=== PATIENT | female | born 1995 ===

== ENCOUNTER 2021-09-03 19:20 | Inpatient (IN) | payer BC ==
[2021-09-03] MEDS ORDERED: Sodium Chloride 0.9% 2.5 ML Syringe FLUSH PRN (19:56)
[2021-09-03] MEDS ORDERED: Terbutaline 1 MG/ML SDV SUBCUT PRN (19:56)
[2021-09-03] MEDS ORDERED: Sodium Chloride 0.9% 10 ML Syringe FLUSH PRN (19:56)
[2021-09-03] MEDS ORDERED: Sodium Chloride 0.9% 10 ML SDV IV PRN (19:56)
[2021-09-03] MEDS ORDERED: Oxytocin/0.9 % Sodium Chloride 30 UNIT/500 ML BAG IV SCH (20:00)
[2021-09-03] MEDS: Sodium Chloride 0.9% 1,000 ML IV SCH (21:00)
[2021-09-03] MEDS: Misoprostol 25 MCG (1/4 of 100 MCG) Tab VAG PRN (21:04)
[2021-09-04 00:27] LABS: BLOOD UREA NITROGEN,BUN 14 mg/dL (7.0-18.0); CARBON DIOXIDE,CO2 22.8 mmol/L (21.0-32.0); CHLORIDE,CL 103 mmol/L (98-107); GLUCOSE RANDOM 89 mg/dL (74-106); POTASSIUM,K 4.1 mmol/L (3.5-5.1); SODIUM,NA 138 mmol/L (136-145)
[2021-09-04] MEDS: Misoprostol 25 MCG (1/4 of 100 MCG) Tab VAG PRN ×2 (01:01→05:02)
[2021-09-04] MEDS: Sodium Chloride 0.9% 1,000 ML IV SCH ×3 (05:00→13:17)
[2021-09-04] MEDS ORDERED: Water For Irrigation,Sterile 1,000 ML Container IRR PRN (09:39)
[2021-09-04] MEDS ORDERED: Methylergonovine 0.2 MG/1 ML Amp IM PRN (09:39)
[2021-09-04] MEDS ORDERED: Lidocaine 1% 50 ML MDV INJECT PRN (09:39)
[2021-09-04] MEDS ORDERED: Tranexamic Acid 1,000 MG in Sodium Chloride 0.9% 100 ML IV PRN (09:39)
[2021-09-04] MEDS ORDERED: Misoprostol 200 MCG Tab PO PRN (09:39)
[2021-09-04] MEDS ORDERED: Ondansetron 4 MG/2 ML SDV IVPUSH PRN (09:39)
[2021-09-04] MEDS ORDERED: Butorphanol 1 MG/ML SDV IVPUSH PRN (09:39)
[2021-09-04] MEDS ORDERED: Carboprost Tromethamine 250 MCG/1 ML Amp IM PRN (09:39)
[2021-09-04] MEDS ORDERED: Oxytocin/0.9 % Sodium Chloride 30 UNIT/500 ML BAG IV SCH (09:45)
[2021-09-04] MEDS ORDERED: Lactated Ringers 1,000 ML IV SCH (09:45)
[2021-09-04] MEDS ORDERED: Ropivacaine HCl/PF 200 ML ONE (11:34)
--- NOTE | 2021-09-04 11:48 | PCM.PREANE ---
Preanesthetic Assessment - Procedure Proposed Procedure: Labor Epidural - Anesthesia/Transfusion/Family Hx Anesthesia History: No Prior Anesthesia Family History of Anesthesia Reaction: No Transfusion History: No Prior Transfusion(s) - Review of Systems General: No Symptoms Pulmonary: No Symptoms Cardiovascular: No Symptoms Gastrointestinal: No Symptoms Neurological: No Symptoms Other: Reports: None - Physical Assessment NPO Status Date: 09/04/21 NPO Status Time: 00:00 Height: 1.52 m Weight: 78.018 kg ASA Class: 2 Mental Status: Alert & Oriented x3 Airway Class: Mallampati = 2 Dentition: Reports: Normal Dentition Thyro-Mental Finger Breadths: 3 Mouth Opening Finger Breadths: 2 ROM/Head Extension: Full Lungs: Clear to Auscultation, Normal Respiratory Effort Cardiovascular: Regular Rate, Regular Rhythm - Lab Values: Laboratory Last Values WBC 7.07 K/uL (4.0-11.0) 09/03/21 20:30 RBC 4.69 M/uL (4.30-5.90) 09/03/21 20:30 Hgb 13.4 g/dL (12.0-16.0) 09/03/21 20:30 Hct 38.8 % (36.0-46.0) 09/03/21 20:30 MCV 82.7 fL (80.0-98.0) 09/03/21 20:30 MCH 28.6 pg (27.0-32.0) 09/03/21 20:30 MCHC 34.5 g/dL (31.0-37.0) 09/03/21 20:30 RDW Std Deviation 50.6 fl (28.0-62.0) 09/03/21 20:30 RDW Coeff of Sulema 17 % (11.0-15.0) H 09/03/21 20:30 Plt Count 213 K/uL (150-400) 09/03/21 20:30 MPV 10.30 fL (7.40-12.00) 09/03/21 20:30 Nucleated RBC % 0.0 /100WBC 09/03/21 20:30 Nucleated RBCs # 0 K/uL 09/03/21 20:30 Sodium 138 mmol/L (136-145) 09/03/21 20:30 Potassium 4.1 mmol/L (3.5-5.1) 09/03/21 20:30 Chloride 103 mmol/L (98-107) 09/03/21 20:30 Carbon Dioxide 22.8 mmol/L (21.0-32.0) 09/03/21 20:30 BUN 14 mg/dL (7.0-18.0) 09/03/21 20:30 Creatinine 0.7 mg/dL (0.6-1.0) 09/03/21 20:30 Est Cr Clr Drug Dosing TNP 09/03/21 20:30 Estimated GFR (MDRD) > 60.0 ml/min 09/03/21 20:30 Glucose 89 mg/dL (74-106) 09/03/21 20:30 POC Glucose 74 mg/dL (70-99) 09/04/21 10:58 Uric Acid 5.5 mg/dL (2.6-7.2) 09/03/21 20:30 Calcium 9.6 mg/dL (8.5-10.1) 09/03/21 20:30 Total Bilirubin 0.1 mg/dL (0.2-1.0) L 09/03/21 20:30 AST 14 IU/L (15-37) L 09/03/21 20:30 ALT 12 IU/L (14-63) L 09/03/21 20:30 Alkaline Phosphatase 120 U/L (46-116) H 09/03/21 20:30 Total Protein 6.1 g/dL (6.4-8.2) L 09/03/21 20:30 Albumin 2.4 g/dL (3.4-5.0) L 09/03/21 20:30 Globulin 3.7 g/dL (2.6-4.0) 09/03/21 20:30 Albumin/Globulin Ratio 0.7 (0.9-1.6) L 09/03/21 20:30 Urine Color YELLOW 09/03/21 19:15 Urine Appearance SLT CLOUDY 09/03/21 19:15 Urine pH 6.5 (5.0-8.0) 09/03/21 19:15 Ur Specific Inez 1.020 (1.001-1.035) 09/03/21 19:15 Urine Protein TRACE mg/dL (NEGATIVE) H 09/03/21 19:15 Urine Glucose (UA) NEGATIVE mg/dL (NEGATIVE) 10/12/21 19:15 Urine Ketones NEGATIVE mg/dL (NEGATIVE) 09/03/21 19:15 Urine Occult Blood SMALL (NEGATIVE) H 09/03/21 19:15 Urine Nitrite NEGATIVE (NEGATIVE) 09/03/21 19:15 Urine Bilirubin NEGATIVE (NEGATIVE) 09/03/21 19:15 Urine Urobilinogen 0.2 EU/dL (<2.0) 09/03/21 19:15 Ur Leukocyte Esterase NEGATIVE (NEGATIVE) 09/03/21 19:15 Urine RBC 1-3 (0-2/HPF) 09/03/21 19:15 Urine WBC 0-1 (0-5/HPF) 09/03/21 19:15 Ur Epithelial Cells RARE (NONE-FEW) 09/03/21 19:15 Amorphous Sediment FEW (NEGATIVE) 09/03/21 19:15 Urine Bacteria FEW (NEGATIVE) 09/03/21 19:15 Ur Random Creatinine 57.5 mg/dL 09/03/21 19:10 U Random Total Protein 50.4 mg/dL (<11.9) H 09/03/21 19:10 Protein/Creatinin Ratio 0.9 09/03/21 19:10 SARS-CoV-2 RNA (CELESTE) NEGATIVE (NEGATIVE) 09/03/21 20:40 Blood Type B POSITIVE 09/03/21 20:30 Antibody Screen NEGATIVE 09/03/21 20:30 - Allergies Allergies/Adverse Reactions: Allergies Allergy/AdvReac Type Severity Reaction Status Date / Time No Known Allergies Allergy Verified 09/03/21 20:48 - Blood Blood Available: Yes Product(s) Available: PRBC (Type and screen) - Anesthesia Plan Pre-Op Medication Ordered: None - Acknowledgements Anesthesia Type Planned: Epidural Pt an Appropriate Candidate for the Planned Anesthesia: Yes Alternatives and Risks of Anesthesia Discussed w Pt/Guardian: Yes Pt/Guardian Understands and Agrees with Anesthesia Plan: Yes Additional Comments: pt denies neurologic or hematology pathology and denies anticoagulant use. 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: Musculoskeletal History: Reports: None Neurological History: Reports: None Psychiatric History: Reports: None Endocrine/Metabolic History: Reports: None Hematologic History: Reports: None Immunologic History: Reports: None Oncologic (Cancer) History: Reports: None Dermatologic History: Reports: None - Infectious Disease History Infectious Disease History: Reports: None - Past Surgical History Head Surgeries/Procedures: Reports: None HEENT Surgical History: Reports: Visual Other HEENT Surgeries/Procedures: 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 GI Surgical History: Reports: None Female Surgical History: Reports: Other (See Below) Other Female Surgeries/Procedures: SEPTATE UTERUS Endocrine Surgical History: Reports: None Oncologic Surgical History: Reports: None - CURRENT (IN HOUSE) MEDS Current Meds: Current Medications Butorphanol Tartrate (Butorphanol 1 Mg/Ml Sdv) 1 mg IVPUSH Q1H PRN PRN Reason: Pain (severe 7-10) Last Admin: 09/04/21 09:55 Dose: 1 mg Documented by: Carboprost Tromethamine (Carboprost Tromethamine 250 Mcg/1 Ml Amp) 250 mcg IM ASDIRECTED PRN PRN Reason: Post Hemorrhage Oxytocin/Sodium Chloride (Oxytocin 30 Unit In Ns 0.9% 500 Ml Premix) 30 unit in 500 mls @ 2 mls/hr IV TITRATE VIELKA; Protocol Last Titration: 09/04/21 10:44 Dose: 4 munits/min, 4 mls/hr Documented by: Sodium Chloride (Normal Saline) 1,000 mls @ 125 mls/hr IV ASDIRECTED VIELKA Last Admin: 09/04/21 11:30 Dose: 125 mls/hr Documented by: Lactated Ringer's (Ringers, Lactated) 1,000 mls @ 150 mls/hr IV ASDIRECTED VIELKA Oxytocin/Sodium Chloride (Oxytocin 30 Unit In Ns 0.9% 500 Ml Premix) 30 unit in 500 mls @ 999 mls/hr IV TITRATE VIELKA Tranexamic Acid 1,000 mg/ (Sodium Chloride) 110 mls @ 660 mls/hr IV ONETIME PRN PRN Reason: Bleeding Lidocaine HCl (Lidocaine 1% 50 Ml Mdv) 50 ml INJECT ONETIME PRN PRN Reason: Laceration repair Methylergonovine Maleate (Methylergonovine 0.2 Mg/1 Ml Amp) 0.2 mg IM ASDIRECTED PRN PRN Reason: Post Hemorrhage Misoprostol (Misoprostol 25 Mcg (1/4 Of 100 Mcg) Tab) 25 mcg VAG Q4H PRN PRN Reason: Cervical Ripening Last Admin: 09/04/21 05:02 Dose: 25 mcg Documented by: Misoprostol (Misoprostol 200 Mcg Tab) 200 mcg PO ONETIME PRN PRN Reason: Post Hemorrhage Ondansetron HCl (Ondansetron 4 Mg/2 Ml Sdv) 4 mg IVPUSH Q4H PRN PRN Reason: Nausea/Vomiting Sodium Chloride (Sodium Chloride 0.9% 10 Ml Syringe) 10 ml FLUSH ASDIRECTED PRN PRN Reason: Keep Vein Open Sodium Chloride (Sodium Chloride 0.9% 2.5 Ml Syringe) 2.5 ml FLUSH ASDIRECTED PRN PRN Reason: Keep Vein Open Sodium Chloride (Sodium Chloride 0.9% 10 Ml Sdv) 10 ml IV ASDIRECTED PRN PRN Reason: IV Use Sterile Water (Water For Irrigation,Sterile 1,000 Ml Container) 1,000 ml IRR ASDIRECTED PRN PRN Reason: delivery Terbutaline Sulfate (Terbutaline 1 Mg/Ml Sdv) 0.25 mg SUBCUT ASDIRECTED PRN PRN Reason: Tacysystole Discontinued Medications Ropivacaine (Naropin 0.2%) Confirm Administered Dose 200 mls @ as directed .ROUTE .[facility] ONE Stop: 09/04/21 11:35
[2021-09-04] MEDS ORDERED: ePHEDrine 50 MG/ML SDV IVPUSH PRN (11:51)
--- NOTE | 2021-09-04 11:51 | PCM.SN.2 ---
Time Documentation - Pre-Procedure Checklist Attending Provider Aware: Yes Chart Reviewed: Yes Consent Signed: Yes Labs Reviewed: Yes VS/FHR Reviewed: Yes Patient Identification Confirmation Method: Reports: Chart Visual, Verbal Patient Pt an Appropriate Candidate for the Planned Anesthesia: Yes Alternatives and Risks of Anesthesia Discussed w Pt/Guardian: Yes - Procedure Procedure Start Date: 09/04/21 Procedure Start Time: 11:[address]: Reports: Blood Pressure, Heart Rate, SPO2 Functional IV: Yes Safety Measures: Reports: Patient Identified, Procedure Verified, Site Verified, Procedure Time Out Patient Position: Reports: Sitting Prep: Reports: Betadine x3 Local Anesthetic: Reports: Intradermal Wheal w Lidocaine 1% (3 ML) Regional Placement Level: Reports: L3-4 Needle: Reports: 17 g Touhy Approach: Reports: Midline Technique: Reports: THALIA Glass Syringe THALIA Needle Depth (cm): 6 cm Parasthesia: Reports: None Fluid Obtained: Reports: None Catheter Depth at Skin (cm): 15 cm Test Dose Time: 11:29 Test Dose Medication: Reports: Lidocaine 1.5% w Epinephrine 1:200,000 (5ml) Test Dose Response: Reports: Negative Loading Dose Time: 11:39 Loading Dose Medication: Ropivicaine 0.2% Loading Dose Patient Position: Supine with LUT Continuous Infusion Start Time: 11:40 Continuous Infusion Medication: Ropivicaine 0.2% Continuous Infusion Rate: 8 Continuous Infusion PCS Bolus Option: 6 Continuous Infusion Lockout Dose (cc/hr): 20 Patient Position Post Placement: Reports: Supline/GOPI Post-procedure Pain Level: 2 Level Achieved: t4 VS and FHR Monitored in Unit Post Placement: Yes Procedure End Date: 09/04/21 Procedure End Time: 11:40 Procedure Comment: Sterile technique used throughout
--- NOTE | 2021-09-04 11:51 | PCM.POSTAN ---
POST ANESTHESIA ASSESSMENT - MENTAL STATUS Mental Status: Alert, Oriented - RESPIRATORY Respiratory Status: Respiratory Rate WNL, Airway Patent, O2 Saturation Stable - CARDIOVASCULAR CV Status: Pulse Rate WNL, Blood Pressure Stable - GASTROINTESTINAL GI Status: No Symptoms - POST OP HYDRATION Hydration Status: Adequate & Stable
[2021-09-04] MEDS ORDERED: Ropivacaine 0.2% 2MG/ML 200 ML Bag EPIDUR SCH (12:30)
[2021-09-04] MEDS ORDERED: Witch Hazel Medicated Pads 40/Jar TOP PRN (15:47)
[2021-09-04] MEDS ORDERED: Lanolin 100% Cream 7 GM Tube TOP PRN (15:47)
[2021-09-04] MEDS ORDERED: Bisacodyl 10 MG Supp RECTAL PRN (15:47)
[2021-09-04] MEDS ORDERED: Benzocaine/Menthol 20%-0.5% Spray 78 GM Cannister TOP PRN (15:47)
[2021-09-04] MEDS ORDERED: Docusate Sodium 100 MG Cap PO PRN (15:47)
[2021-09-04] MEDS ORDERED: Acetaminophen 500 MG Tab PO PRN ×2 (15:47)
[2021-09-04] MEDS ORDERED: Ibuprofen 800 MG Tab PO PRN (15:47)
[2021-09-04] MEDS ORDERED: Ibuprofen 400 MG Tab PO PRN (15:47)
--- NOTE | 2021-09-04 23:33 | OR ---
SURGEON: Angel Irby MD DATE OF PROCEDURE: 09/04/2021 INDICATION FOR PROCEDURE: A 26-year-old G1, P0, at 38 weeks and 0 days, presenting for induction of labor due to preeclampsia without severe features. The patient presented to clinic yesterday reporting increased lower extremity swelling and occipital headache. She had new onset elevated blood pressure of 130s over 90 to 100. Preeclampsia labs were normal except for an elevated protein-creatinine ratio of 0.6. Discussed with the patient she has a diagnosis of preeclampsia without severe features, which increases the risk of complications to her and the baby, would recommend proceeding with induction of labor. The patient was agreeable. also complicated by GDM A1 that was well controlled with diet. The patient also has a history of uterine septum and anovulation due to PCOS. She had growth ultrasounds with estimated weight of 51st percentile. She is GBS-negative. She was initially not dilated. She received 3 doses of Cytotec and became 1 cm dilated. She ruptured spontaneously with clear fluid. Pitocin was then started, and she started having stronger and regular contractions. She received an epidural with good pain control. She progressed to 3 to 4 cm dilated. She then started to have some early and variable decelerations. Resuscitative measures were performed, but she continued to have variable decelerations down to the 80s. Therefore, Pitocin was turned off. She continued to progress on her own and became fully dilated after 1 hour with urge to push. heart rate also improved. She began pushing with contractions. PREOPERATIVE DIAGNOSES: 1. Etienne intrauterine at 38 weeks and 0 days. 2. Preeclampsia without severe features. 3. Gestational diabetes mellitus A1. 4. Active labor. POSTOPERATIVE DIAGNOSES: 1. Etienne intrauterine at 38 weeks and 0 days. 2. Preeclampsia without severe features. 3. Gestational diabetes mellitus A1. 4. Active labor. PROCEDURE PERFORMED: Normal spontaneous vaginal delivery and repair of periurethral laceration. PRIMARY SURGEON: Angel Irby MD. ANESTHESIA: Epidural. FINDINGS: Viable male , score of 8 and 9. weight of 2600g. Nuchal cord x1. ESTIMATED BLOOD LOSS: 200 mL. DESCRIPTION OF PROCEDURE: The patient pushed well with contractions for 1 hour. The head delivered in occiput anterior position over intact perineum, restituted ROT. Nuchal cord x1 was noted and was tight. Anterior shoulder delivered easily followed by posterior shoulder and remaining body. Nuchal cord was reduced after delivery. The baby was placed on maternal chest and evaluated by awaiting nursery staff. Baby was pink, crying, and moving all extremities immediately after delivery. The umbilical cord was clamped and cut after about 2 minutes and no longer pulsating. The umbilical cord gases were obtained. The placenta was removed with gentle traction on the umbilical cord. It was examined and noted to be intact with 3-vessel cord. The vagina and perineum were examined and she had a right periurethral laceration that was bleeding. A [id number] was placed with 3-0 Vicryl and hemostasis was achieved. Fundal massage was performed and the fundus was firm and at the umbilicus. The bleeding was light. The patient tolerated the procedure well, was given care instructions. REGINO BROTHERS /[id number] MTDD
[2021-09-05 06:44] LABS: BLOOD UREA NITROGEN,BUN 9 mg/dL (7.0-18.0); CARBON DIOXIDE,CO2 21.6 mmol/L (21.0-32.0); CHLORIDE,CL 108 mmol/L (98-107); GLUCOSE RANDOM 84 mg/dL (74-106); POTASSIUM,K 3.6 mmol/L (3.5-5.1); SODIUM,NA 141 mmol/L (136-145)
--- NOTE | 2021-09-05 07:03 | PCM48HPAN ---
Post Anesthesia Note - EVALUATION WITHIN 48HRS OF ANESTHETIC Vital Signs in Normal Range: Yes Patient Participated in Evaluation: Yes Respiratory Function Stable: Yes Airway Patent: Yes Cardiovascular Function Stable: Yes Hydration Status Stable: Yes Pain Control Satisfactory: Yes Nausea and Vomiting Control Satisfactory: Yes Mental Status Recovered: Yes Vital Signs: Last Vital Signs Temp 97.5 F 09/05/21 03:41 Pulse 73 09/05/21 03:41 Resp 18 09/05/21 03:41 BP 135/68 09/05/21 03:41 Pulse Ox 97 09/05/21 03:41
--- NOTE | 2021-09-05 09:05 | PCM.PNPP ---
- General Info Date of Service: 09/05/21 Functional Status: Reports: Pain Controlled, Tolerating Diet, Ambulating, Urinating, Other (Bleeding light) - Review of Systems General: Reports: No Symptoms HEENT: Reports: No Symptoms Pulmonary: Reports: No Symptoms Cardiovascular: Reports: No Symptoms Gastrointestinal: Reports: No Symptoms Genitourinary: Reports: No Symptoms Musculoskeletal: Reports: No Symptoms Skin: Reports: No Symptoms Neurological: Reports: No Symptoms Psychiatric: Reports: No Symptoms - Patient Data Vital Signs - Most Recent: Last Vital Signs Temp 36.4 C 09/05/21 03:41 Pulse 73 09/05/21 03:41 Resp 18 09/05/21 03:41 BP 135/68 09/05/21 03:41 Pulse Ox 97 09/05/21 03:41 Weight - Most Recent: 172 lb Lab Results - Last 24 Hours: Laboratory Results - last 24 hr 09/04/21 09/04/21 09/05/21 Range/Units 10:58 14:42 04:40 WBC 11.91 H (4.0-11.0) K/uL RBC 4.40 (4.30-5.90) M/uL Hgb 12.4 (12.0-16.0) g/dL Hct 36.7 (36.0-46.0) % MCV 83.4 (80.0-98.0) fL MCH 28.2 (27.0-32.0) pg MCHC 33.8 (31.0-37.0) g/dL RDW Std Deviation 50.8 (28.0-62.0) fl RDW Coeff of Sulema 17 H (11.0-15.0) % Plt Count 179 (150-400) K/uL MPV 10.20 (7.40-12.00) fL Neut % (Auto) 73.5 (48.0-80.0) % Lymph % (Auto) 19.4 (16.0-40.0) % [place] % (Auto) 6.6 (0.0-15.0) % Eos % (Auto) 0.3 (0.0-7.0) % Baso % (Auto) 0.2 (0.0-1.5) % Neut # (Auto) 8.8 H (1.4-5.7) K/uL Lymph # (Auto) 2.3 (0.6-2.4) K/uL [place] # (Auto) 0.8 (0.0-0.8) K/uL Eos # (Auto) 0.0 (0.0-0.7) K/uL Baso # (Auto) 0.0 (0.0-0.1) K/uL Nucleated RBC % 0.0 /100WBC Nucleated RBCs # 0 K/uL Sodium (136-145) mmol/L Potassium (3.5-5.1) mmol/L Chloride (98-107) mmol/L Carbon Dioxide (21.0-32.0) mmol/L BUN (7.0-18.0) mg/dL Creatinine (0.6-1.0) mg/dL Est Cr Clr Drug Dosing mL/min Estimated GFR (MDRD) ml/min Glucose (74-106) mg/dL POC Glucose 74 125 H (70-99) mg/dL Calcium (8.5-10.1) mg/dL Total Bilirubin (0.2-1.0) mg/dL AST (15-37) IU/L ALT (14-63) IU/L Alkaline Phosphatase (46-116) U/L Total Protein (6.4-8.2) g/dL Albumin (3.4-5.0) g/dL Globulin (2.6-4.0) g/dL Albumin/Globulin Ratio (0.9-1.6) 09/05/21 Range/Units 04:40 WBC (4.0-11.0) K/uL RBC (4.30-5.90) M/uL Hgb (12.0-16.0) g/dL Hct (36.0-46.0) % MCV (80.0-98.0) fL MCH (27.0-32.0) pg MCHC (31.0-37.0) g/dL RDW Std Deviation (28.0-62.0) fl RDW Coeff of Sulema (11.0-15.0) % Plt Count (150-400) K/uL MPV (7.40-12.00) fL Neut % (Auto) (48.0-80.0) % Lymph % (Auto) (16.0-40.0) % [place] % (Auto) (0.0-15.0) % Eos % (Auto) (0.0-7.0) % Baso % (Auto) (0.0-1.5) % Neut # (Auto) (1.4-5.7) K/uL Lymph # (Auto) (0.6-2.4) K/uL [place] # (Auto) (0.0-0.8) K/uL Eos # (Auto) (0.0-0.7) K/uL Baso # (Auto) (0.0-0.1) K/uL Nucleated RBC % /100WBC Nucleated RBCs # K/uL Sodium 141 (136-145) mmol/L Potassium 3.6 (3.5-5.1) mmol/L Chloride 108 H (98-107) mmol/L Carbon Dioxide 21.6 (21.0-32.0) mmol/L BUN 9 (7.0-18.0) mg/dL Creatinine 0.5 L (0.6-1.0) mg/dL Est Cr Clr Drug Dosing 123.54 mL/min Estimated GFR (MDRD) > 60.0 ml/min Glucose 84 (74-106) mg/dL POC Glucose (70-99) mg/dL Calcium 7.9 L (8.5-10.1) mg/dL Total Bilirubin 0.3 (0.2-1.0) mg/dL AST 21 (15-37) IU/L ALT 14 (14-63) IU/L Alkaline Phosphatase 94 (46-116) U/L Total Protein 5.1 L (6.4-8.2) g/dL Albumin 1.9 L (3.4-5.0) g/dL Globulin 3.2 (2.6-4.0) g/dL Albumin/Globulin Ratio 0.6 L (0.9-1.6) Med Orders - Current: Current Medications Acetaminophen (Acetaminophen 500 Mg Tab) 500 mg PO Q4H PRN PRN Reason: Pain (mild 1-3) Acetaminophen (Acetaminophen 500 Mg Tab) 1,000 mg PO Q4H PRN PRN Reason: Pain (mild 1-3) Last Admin: 09/05/21 07:51 Dose: 1,000 mg Documented by: Benzocaine/Menthol (Benzocaine/Menthol 20%-0.5% Philipp 78 Gm Cannister) 78 gm TOP ASDIRECTED PRN PRN Reason: Perineal Comfort Measure Last Admin: 09/04/21 17:36 Dose: 1 container Documented by: Bisacodyl (Bisacodyl 10 Mg Supp) 10 mg RECTAL ONETIME PRN PRN Reason: Constipation Docusate Sodium (Docusate Sodium 100 Mg Cap) 100 mg PO Q12H PRN PRN Reason: Constipation Emollient Ointment (Lanolin 100% Cream 7 Gm Tube) 0 gm TOP ASDIRECTED PRN PRN Reason: Sore Nipples Sodium Chloride (Normal Saline) 1,000 mls @ 125 mls/hr IV ASDIRECTED VIELKA Last Admin: 09/04/21 13:17 Dose: 125 mls/hr Documented by: Ibuprofen (Ibuprofen 400 Mg Tab) 400 mg PO Q4H PRN PRN Reason: Pain (mild 1-3) Ibuprofen (Ibuprofen 800 Mg Tab) 800 mg PO Q6H PRN PRN Reason: Cramping Miscellaneous Medication (Phenylephrine Hcl In 0.9% Nacl 1 Mg/10 Ml Syringe) 0.1 mg IVPUSH Q1M PRN PRN Reason: Hypotension Ropivacaine (Ropivacaine 0.2% 2mg/Ml 200 Ml Bag) 400 mg EPIDUR ASDIRECTED VIELKA Sodium Chloride (Sodium Chloride 0.9% 10 Ml Syringe) 10 ml FLUSH ASDIRECTED PRN PRN Reason: Keep Vein Open Sodium Chloride (Sodium Chloride 0.9% 2.5 Ml Syringe) 2.5 ml FLUSH ASDIRECTED PRN PRN Reason: Keep Vein Open Sodium Chloride (Sodium Chloride 0.9% 10 Ml Sdv) 10 ml IV ASDIRECTED PRN PRN Reason: IV Use Witch Brynn (Witch Brynn Medicated Pads 40/Jar) 1 pad TOP ASDIRECTED PRN PRN Reason: comfort care Last Admin: 09/04/21 17:36 Dose: 1 container Documented by: Discontinued Medications Butorphanol Tartrate (Butorphanol 1 Mg/Ml Sdv) 1 mg IVPUSH Q1H PRN PRN Reason: Pain (severe 7-10) Last Admin: 09/04/21 09:55 Dose: 1 mg Documented by: Carboprost Tromethamine (Carboprost Tromethamine 250 Mcg/1 Ml Amp) 250 mcg IM ASDIRECTED PRN PRN Reason: Post Hemorrhage Ephedrine Sulfate (Ephedrine 50 Mg/Ml Sdv) 10 mg IVPUSH Q1M PRN PRN Reason: Hypotension Oxytocin/Sodium Chloride (Oxytocin 30 Unit In Ns 0.9% 500 Ml Premix) 30 unit in 500 mls @ 2 mls/hr IV TITRATE VIELKA; Protocol Last Titration: 09/04/21 15:02 Dose: 2 munits/min, 2 mls/hr Documented by: Lactated Ringer's (Ringers, Lactated) 1,000 mls @ 150 mls/hr IV ASDIRECTED VIELKA Oxytocin/Sodium Chloride (Oxytocin 30 Unit In Ns 0.9% 500 Ml Premix) 30 unit in 500 mls @ 999 mls/hr IV TITRATE VIELKA Last Admin: 09/04/21 15:30 Dose: 999 mls/hr Documented by: Tranexamic Acid 1,000 mg/ (Sodium Chloride) 110 mls @ 660 mls/hr IV ONETIME PRN PRN Reason: Bleeding Ropivacaine (Naropin 0.2%) Confirm Administered Dose 200 mls @ as directed .ROUTE .[facility] ONE Stop: 09/04/21 11:35 Lidocaine HCl (Lidocaine 1% 50 Ml Mdv) 50 ml INJECT ONETIME PRN PRN Reason: Laceration repair Methylergonovine Maleate (Methylergonovine 0.2 Mg/1 Ml Amp) 0.2 mg IM ASDIRECTED PRN PRN Reason: Post Hemorrhage Misoprostol (Misoprostol 25 Mcg (1/4 Of 100 Mcg) Tab) 25 mcg VAG Q4H PRN PRN Reason: Cervical Ripening Last Admin: 09/04/21 05:02 Dose: 25 mcg Documented by: Misoprostol (Misoprostol 200 Mcg Tab) 200 mcg PO ONETIME PRN PRN Reason: Post Hemorrhage Ondansetron HCl (Ondansetron 4 Mg/2 Ml Sdv) 4 mg IVPUSH Q4H PRN PRN Reason: Nausea/Vomiting Sterile Water (Water For Irrigation,Sterile 1,000 Ml Container) 1,000 ml IRR ASDIRECTED PRN PRN Reason: delivery Terbutaline Sulfate (Terbutaline 1 Mg/Ml Sdv) 0.25 mg SUBCUT ASDIRECTED PRN PRN Reason: Tacysystole - Infant Interaction Infant Disposition, : [place] at Bedside Infant Feeding: Breastfed Infant; Nursed Well Support Person: - Recovery Exam Fundal Tone: Firm Fundal Level: At Umbilicus Fundal Placement: Midline Lochia Amount: Scant Lochia Color: Rubra/Red Episiotomy/Laceration: None Bladder Status: Voiding - Exam General: Alert, Oriented, Cooperative, No Acute Distress HEENT: Pupils Equal, Pupils Reactive, EOMI Neck: Supple, Trachea Midline, No JVD Lungs: Normal Respiratory Effort GI/Abdominal Exam: Soft, Non-Tender, No Distention Extremities: Normal Inspection, Normal Range of Motion, Non-Tender, No Pedal Edema Skin: Warm, Dry, Intact Neurological: No New Focal Deficit Psy/Mental Status: Alert, Normal Affect, Normal Mood - Problem List Review Problem List Initiated/Reviewed/Updated: Yes - My Orders Last 24 Hours: My Active Orders 09/04/21 09:00 Deep Tendon Reflexes [WOMSER] Q1H 09/04/21 09:39 Resuscitation Status Routine 09/04/21 10:00 Deep Tendon Reflexes [WOMSER] Q1H 09/04/21 11:00 Deep Tendon Reflexes [WOMSER] Q1H 09/04/21 12:00 Deep Tendon Reflexes [WOMSER] Q1H 09/04/21 13:00 Deep Tendon Reflexes [WOMSER] Q1H 09/04/21 14:00 Deep Tendon Reflexes [WOMSER] Q1H 09/04/21 15:00 Deep Tendon Reflexes [WOMSER] Q1H 09/04/21 15:47 Patient Status [ADT] Routine May Shower [RC] ASDIRECTED Up ad Naomi [RC] ASDIRECTED Vital Signs [RC] PER UNIT ROUTINE Acetaminophen [Tylenol Extra Strength] 1,000 mg PO Q4H PRN Acetaminophen [Tylenol Extra Strength] 500 mg PO Q4H PRN Benzocaine/Menthol [Dermoplast Pain Relief 20%-0.5% Philipp] 78 gm TOP ASDIRECTED PRN Docusate Sodium [Colace] 100 mg PO Q12H PRN Ibuprofen [Motrin] 400 mg PO Q4H PRN Ibuprofen [Motrin] 800 mg PO Q6H PRN Lanolin [Lansinoh HPA] See Dose Instructions TOP ASDIRECTED PRN bisacodyL [Dulcolax] 10 mg RECTAL ONETIME PRN witch Brynn [Tucks] 1 pad TOP ASDIRECTED PRN Assess Lochia [WOMSER] Per Unit Routine Assess Uterine Involution [WOMSER] Per Unit Routine Peripheral IV Discontinue [OM.PC] Routine 09/04/21 Dinner Regular Diet [DIET] Deep Tendon Reflexes [WOMSER] Q1H 09/04/21 17:00 Deep Tendon Reflexes [WOMSER] Q1H 09/04/21 18:00 Deep Tendon Reflexes [WOMSER] Q1H 09/04/21 19:00 Deep Tendon Reflexes [WOMSER] Q1H - Assessment Assessment:: 26yo PPD1 s/p , complicated by preeclampsia without severe features and GDMA1. - Plan Plan:: - intermittent mild range BPs, normal this AM. Denies any symptoms, will c ontinue to monitor closely - Hgb stable, bleeding light - tolerating PO, encourage ambulation - well Possible discharge home later today. Reviewed care instructions.
--- NOTE | 2021-09-05 09:59 | PCM48HPAN ---
Post Anesthesia Note - EVALUATION WITHIN 48HRS OF ANESTHETIC Vital Signs in Normal Range: Yes Patient Participated in Evaluation: Yes Respiratory Function Stable: Yes Airway Patent: Yes Cardiovascular Function Stable: Yes Hydration Status Stable: Yes Pain Control Satisfactory: Yes Nausea and Vomiting Control Satisfactory: Yes Mental Status Recovered: Yes Vital Signs: Last Vital Signs Temp 35.8 C L 09/05/21 08:00 Pulse 69 09/05/21 08:00 Resp 18 09/05/21 08:00 BP 134/76 09/05/21 08:00 Pulse Ox 97 09/05/21 08:00 - COMMENTS/OBSERVATIONS Free Text/Narrative:: Pt states be ambulating in room with no weakness or paresthesias. Pt states only minimal discomfort at epidural site.
[2021-09-05] MEDS ORDERED: NIFEdipine 30 MG Tab.ER PO SCH (19:00)
[2021-09-06] MEDS ORDERED: Labetalol 100 MG Tab PO ONE (02:12)
--- NOTE | 2021-09-06 08:51 | PCM.PNPP ---
- General Info Date of Service: 09/06/21 Functional Status: Reports: Pain Controlled, Tolerating Diet, Ambulating, Urinating, Other (BP elevated last night, given procardia which did not improve her BP. Started on labetalol and is normtensive this morning.) - Review of Systems General: Reports: No Symptoms HEENT: Reports: No Symptoms Pulmonary: Reports: No Symptoms Cardiovascular: Reports: No Symptoms Gastrointestinal: Reports: No Symptoms Genitourinary: Reports: No Symptoms Musculoskeletal: Reports: No Symptoms Skin: Reports: No Symptoms Neurological: Reports: No Symptoms Psychiatric: Reports: No Symptoms - Patient Data Vital Signs - Most Recent: Last Vital Signs Temp 36.2 C 09/06/21 06:30 Pulse 63 09/06/21 06:30 Resp 17 09/06/21 06:30 BP 123/77 09/06/21 06:30 Pulse Ox 96 09/06/21 06:30 Weight - Most Recent: 172 lb Med Orders - Current: Current Medications Acetaminophen (Acetaminophen 500 Mg Tab) 500 mg PO Q4H PRN PRN Reason: Pain (mild 1-3) Acetaminophen (Acetaminophen 500 Mg Tab) 1,000 mg PO Q4H PRN PRN Reason: Pain (mild 1-3) Last Admin: 09/05/21 07:51 Dose: 1,000 mg Documented by: Benzocaine/Menthol (Benzocaine/Menthol 20%-0.5% [place] 78 Gm Cannister) 78 gm TOP ASDIRECTED PRN PRN Reason: Perineal Comfort Measure Last Admin: 09/04/21 17:36 Dose: 1 container Documented by: Bisacodyl (Bisacodyl 10 Mg Supp) 10 mg RECTAL ONETIME PRN PRN Reason: Constipation Docusate Sodium (Docusate Sodium 100 Mg Cap) 100 mg PO Q12H PRN PRN Reason: Constipation Emollient Ointment (Lanolin 100% Cream 7 Gm Tube) 0 gm TOP ASDIRECTED PRN PRN Reason: Sore Nipples Sodium Chloride (Normal Saline) 1,000 mls @ 125 mls/hr IV ASDIRECTED VIELKA Last Admin: 09/04/21 13:17 Dose: 125 mls/hr Documented by: Ibuprofen (Ibuprofen 400 Mg Tab) 400 mg PO Q4H PRN PRN Reason: Pain (mild 1-3) Ibuprofen (Ibuprofen 800 Mg Tab) 800 mg PO Q6H PRN PRN Reason: Cramping Miscellaneous Medication (Phenylephrine Hcl In 0.9% Nacl 1 Mg/10 Ml Syringe) 0.1 mg IVPUSH Q1M PRN PRN Reason: Hypotension Ropivacaine (Ropivacaine 0.2% 2mg/Ml 200 Ml Bag) 400 mg EPIDUR ASDIRECTED VIELKA Sodium Chloride (Sodium Chloride 0.9% 10 Ml Syringe) 10 ml FLUSH ASDIRECTED PRN PRN Reason: Keep Vein Open Sodium Chloride (Sodium Chloride 0.9% 2.5 Ml Syringe) 2.5 ml FLUSH ASDIRECTED PRN PRN Reason: Keep Vein Open Sodium Chloride (Sodium Chloride 0.9% 10 Ml Sdv) 10 ml IV ASDIRECTED PRN PRN Reason: IV Use Witch Brynn (Witch Brynn Medicated Pads 40/Jar) 1 pad TOP ASDIRECTED PRN PRN Reason: comfort care Last Admin: 09/04/21 17:36 Dose: 1 container Documented by: Discontinued Medications Butorphanol Tartrate (Butorphanol 1 Mg/Ml Sdv) 1 mg IVPUSH Q1H PRN PRN Reason: Pain (severe 7-10) Last Admin: 09/04/21 09:55 Dose: 1 mg Documented by: Carboprost Tromethamine (Carboprost Tromethamine 250 Mcg/1 Ml Amp) 250 mcg IM ASDIRECTED PRN PRN Reason: Post Hemorrhage Ephedrine Sulfate (Ephedrine 50 Mg/Ml Sdv) 10 mg IVPUSH Q1M PRN PRN Reason: Hypotension Oxytocin/Sodium Chloride (Oxytocin 30 Unit In Ns 0.9% 500 Ml Premix) 30 unit in 500 mls @ 2 mls/hr IV TITRATE VIELKA; Protocol Last Titration: 09/04/21 15:02 Dose: 2 munits/min, 2 mls/hr Documented by: Lactated Ringer's (Ringers, Lactated) 1,000 mls @ 150 mls/hr IV ASDIRECTED VIELKA Oxytocin/Sodium Chloride (Oxytocin 30 Unit In Ns 0.9% 500 Ml Premix) 30 unit in 500 mls @ 999 mls/hr IV TITRATE VIELKA Last Admin: 09/04/21 15:30 Dose: 999 mls/hr Documented by: Tranexamic Acid 1,000 mg/ (Sodium Chloride) 110 mls @ 660 mls/hr IV ONETIME PRN PRN Reason: Bleeding Ropivacaine (Naropin 0.2%) Confirm Administered Dose 200 mls @ as directed .ROUTE .STK-MED ONE Stop: 09/04/21 11:35 Labetalol HCl (Labetalol 100 Mg Tab) 200 mg PO ONETIME ONE Stop: 09/06/21 02:13 Last Admin: 09/06/21 01:45 Dose: 200 mg Documented by: Lidocaine HCl (Lidocaine 1% 50 Ml Mdv) 50 ml INJECT ONETIME PRN PRN Reason: Laceration repair Methylergonovine Maleate (Methylergonovine 0.2 Mg/1 Ml Amp) 0.2 mg IM ASDIRECTED PRN PRN Reason: Post Hemorrhage Misoprostol (Misoprostol 25 Mcg (1/4 Of 100 Mcg) Tab) 25 mcg VAG Q4H PRN PRN Reason: Cervical Ripening Last Admin: 09/04/21 05:02 Dose: 25 mcg Documented by: Misoprostol (Misoprostol 200 Mcg Tab) 200 mcg PO ONETIME PRN PRN Reason: Post Hemorrhage Nifedipine (Nifedipine 30 Mg Tab.Er) 30 mg PO DAILY VIELKA Last Admin: 09/05/21 19:52 Dose: 30 mg Documented by: Ondansetron HCl (Ondansetron 4 Mg/2 Ml Sdv) 4 mg IVPUSH Q4H PRN PRN Reason: Nausea/Vomiting Sterile Water (Water For Irrigation,Sterile 1,000 Ml Container) 1,000 ml IRR ASDIRECTED PRN PRN Reason: delivery Terbutaline Sulfate (Terbutaline 1 Mg/Ml Sdv) 0.25 mg SUBCUT ASDIRECTED PRN PRN Reason: Tacysystole - Infant Interaction Infant Disposition, : at Bedside Infant Feeding: Breastfed Infant; Nursed Well Support Person: - Recovery Exam Fundal Tone: Firm Fundal Level: 1 Fingerbreadths Below Umbilicus Fundal Placement: Midline Lochia Amount: Scant Lochia Color: Rubra/Red Perineum Description: Other (see below) Other Perinuem Description: right periurtheral tear repaired Episiotomy/Laceration: Approximated Bladder Status: Voiding Urinary Elimination: Voided - Exam General: Alert, Oriented, Cooperative, No Acute Distress HEENT: Pupils Equal, Pupils Reactive, EOMI Neck: Supple, Trachea Midline, No JVD Lungs: Clear to Auscultation, Normal Respiratory Effort Cardiovascular: Regular Rate, Regular Rhythm, No Murmurs GI/Abdominal Exam: Normal Bowel Sounds, Soft, Non-Tender, No Distention Extremities: Normal Inspection, Normal Range of Motion, Non-Tender, No Pedal Edema Skin: Warm, Dry, Intact Neurological: No New Focal Deficit Psy/Mental Status: Alert, Normal Affect, Normal Mood - Problem List Review Problem List Initiated/Reviewed/Updated: Yes - Assessment Assessment:: 26yo PPD2 s/p , complicated by preeclampsia without severe features and GDMA1. - Plan Plan:: - elevated BP yesterday, improved with labetalol 200mg last night, normal this AM. Denies any symptoms. - Hgb stable, bleeding light - tolerating PO, encourage ambulation - well Plan for discharge home later today. Reviewed signs of preeclampsia, discharge home with labetalol 200mg BID. care instructions.
== END 2021-09-06 13:22 | disposition home or self-care (01) | DRG 560 ==
LOC: MW.OB 19:20 → MW.OBCHECK 19:20 → MW.OB 19:21 → MW.OBCHECK 20:58 → OBSVTOIN 09-04 15:47 → MW.OB 09-04 18:34
PROVIDERS: ADMIT Obstetrics & Gynecology; ATTEND Obstetrics & Gynecology
PROC: 10E0XZZ Delivery of Products of Conception, External Approach (ICD-10-PCS; principal; 2021-09-04)
PROC: 0UQMXZZ Repair Vulva, External Approach (ICD-10-PCS; 2021-09-04)
PROC: 3E0R3BZ Introduction of Anesthetic Agent into Spinal Canal, Percutaneous Approach (ICD-10-PCS; 2021-09-04)
PROC: 00HU33Z Insertion of Infusion Device into Spinal Canal, Percutaneous Approach (ICD-10-PCS; 2021-09-04)
DX: O14.04 Mild to moderate pre-eclampsia, complicating childbirth (principal); Z37.0 Single live birth; O24.429 Gestational diabetes mellitus in childbirth, unspecified control; O69.1XX0 Labor and delivery complicated by cord around neck, with compression, not applicable or unspecified; Z20.822 Contact with and (suspected) exposure to COVID-19; Z3A.38 38 weeks gestation of pregnancy; O71.82 Other specified trauma to perineum and vulva
CPT/HCPCS: 36415; 51702; 59025; 59409; 80053; 81001; 82570; 82947; 84156; 84550; 85025; 85027; 86850; 86900; 86901; A9270-GY; J0595; J2590; J2795; J7030; U0002